=== PATIENT | female | born 1940 | race Caucasian/White ===

== ENCOUNTER 2019-07-01 18:09 | Inpatient (IN) | payer OTHER ==
[~2019-07-01] VITALS: Ht 160 cm; Wt 71.8 kg
[~2019-07-01 18:09] MED LIST: CIPR500T4 PO; MECL25TA18 PO; METR-103 PO
[2019-07-01 19:21] LABS: Basophils # (auto) 0 10 ^3/uL (0-0.2); Basophils % (auto) 0.5 % (0.0-2.0); Eosinophils # (auto) 0.2 10 ^3/uL (0-0.8); Hematocrit 38.5 % (36.0-46.0); Hemoglobin 12.5 g/dL (12.2-16.2); Lymphocytes # (auto) 1.9 10 ^3/uL (0.4-5.4); Lymphocytes % (auto) 21.1 % (10.0-50.0); Mean Corpuscular Hemoglobin 28.5 pg (28.0-32.0); Mean Corpuscular Hgb Conc. 32.3 g/dL (32.0-36.0); Mean Corpuscular Volume 88.1 fL (80.0-100.0); Monocytes # (auto) 0.8 10 ^3/uL (0-1.3); Monocytes % (auto) 8.6 % (0.0-12.0); Neutrophils # (auto) 6.1 10 ^3/uL (1.6-8.6); Neutrophils % (auto) 67.8 % (37.0-80.0); Platelet Count (auto) 134 10^3/uL (140-450); Red Blood Cells 4.37 10^6/uL (4.0-5.20); Red Cell Distribution Width 17.5 % (11.8-14.3)
[2019-07-01 19:44] LABS: Calcium 8.4 mg/dL (8.5-10.1); Chloride 107 mmol/L (98-107); Potassium 4.4 mmol/L (3.5-5.1); Sodium 138 mmol/L (136-145)
[2019-07-01 19:51] LABS: Alanine Aminotransferase 20 U/L (13-56); Albumin 3.7 g/dL (3.4-5.0); Alkaline Phosphatase 127 U/L (45-117); Anion Gap 5 (5-15); Aspartate Aminotransferase 17 U/L (15-37); BUN/Creatinine Ratio 29.4; Bilirubin, Total 0.6 mg/dL (0.2-1.0); Blood Urea Nitrogen 30 mg/dL (7-18); Carbon Dioxide 26 mmol/L (21-32); GFR African American 67 mL/min; GFR Non-African American 56 mL/min; Glucose 131 mg/dL (74-106)
[2019-07-01 19:52] LABS: Urine Bacteria NONE SEEN /hpf (None Seen); Urine Blood Negative /uL (Negative); Urine Specific Gravity 1.015 (1.001-1.035); Urine WBC 11 /hpf (0 - 5)
[2019-07-01 20:06] LABS: INR 1.07 (0.9-1.15); Partial Thromboplastin Time 25.3 sec (23.64-32.05)
[2019-07-01] MEDS ORDERED: levoFLOXacin 500MG 100 ML IV ONE (20:30)
[2019-07-01] MEDS ORDERED: DEXTROSE (50%) 50ML SYRG IV PRN (21:15)
[2019-07-01] MEDS ORDERED: TEMAZEPAM 15 MG CAP PO PRN (21:15)
[2019-07-01] MEDS ORDERED: MORPHINE SULF INJ 2 MG/ML SYRINGE 1ML IV PRN (21:15)
[2019-07-01] MEDS ORDERED: NITROGLYCERIN 0.4 MG SL TAB SL PRN (21:15)
[2019-07-01] MEDS ORDERED: SODIUM CHLORIDE 0.9% 1,000 ML IV SCH (21:15)
[2019-07-01] MEDS ORDERED: PANTOPRAZOLE 40 MG/10 ML VIAL INJ IV ONE (21:15)
[2019-07-01] MEDS ORDERED: ONDANSETRON HCL 4 MG/2 ML VIAL IV PRN (21:15)
--- NOTE | 2019-07-01 22:35 | NUR ---
Telemetry admit from ER KELIN IBRAHIM admitted to Telemetry unit after SBAR received. Patient oriented to Mark Spears, primary RN, unit, room, bed, and unit policies regarding patient care and visiting hours. Patient now on continuous telemetry monitoring, tele box # 73 and telemetry reading on arrival to unit is sinus rhythm. Patient weighed by bedscale and encouraged to call if they need something. All questions and concerns addressed, patient verbalized understanding.
[2019-07-01 23:38] VITALS: BP 123/67
[2019-07-01 23:55] VITALS: BP 123/67
[2019-07-02] MEDS: ACCU-CHEK COMFORT CURVE STRIP VI SCH ×4 (00:29→17:38)
[2019-07-02] MEDS: InsuLIN REG 1unit/0.01ml Soln (100units/ml) SC SCH ×4 (00:29→17:38)
[2019-07-02 05:00] VITALS: BP 95/43
--- NOTE | 2019-07-02 05:30 | NUR ---
Stool sample for occult blood and culture sent to laboratory.
[2019-07-02 05:56] LABS: Basophils # (auto) 0 10 ^3/uL (0-0.2); Basophils % (auto) 0.4 % (0.0-2.0); Eosinophils # (auto) 0.2 10 ^3/uL (0-0.8); Eosinophils % (auto) 2.8 % (0.0-7.0); Hematocrit 30.8 % (36.0-46.0); Hemoglobin 10.4 g/dL (12.2-16.2); Lymphocytes # (auto) 1.8 10 ^3/uL (0.4-5.4); Lymphocytes % (auto) 27.9 % (10.0-50.0); Mean Corpuscular Hemoglobin 29.8 pg (28.0-32.0); Mean Corpuscular Hgb Conc. 33.9 g/dL (32.0-36.0); Monocytes # (auto) 0.6 10 ^3/uL (0-1.3); Neutrophils % (auto) 59.9 % (37.0-80.0); Nucleated Red Blood Cells % 0.1 %; Platelet Count (auto) 108 10^3/uL (140-450); Red Cell Distribution Width 17.1 % (11.8-14.3); White Blood Cell 6.6 10^3/uL (4.4-10.8)
[2019-07-02 06:12] LABS: BUN/Creatinine Ratio 38.6; Calcium 7.7 mg/dL (8.5-10.1); Potassium 4.1 mmol/L (3.5-5.1)
[2019-07-02 08:00] VITALS: BP 108/64
[2019-07-02 09:00] VITALS: BP 108/64
[2019-07-02] MEDS ORDERED: levoFLOXacin 500MG 100 ML IV SCH (10:00)
[2019-07-02] MEDS: levoFLOXacin 250MG 50 ML IV SCH (11:43)
[2019-07-02] MEDS: PANTOPRAZOLE 40 MG/10 ML VIAL INJ IV SCH (11:43)
[2019-07-02 13:00] VITALS: BP 123/55
--- NOTE | 2019-07-02 15:00 | NUR ---
DR. ROBBINS AT BEDSIDE. ORDERS RECEIVED AND VERIFIED.
[2019-07-02 16:54] VITALS: BP 128/58
[2019-07-02] MEDS: POTASSIUM CHLORIDE 20 MEQ in D5W/LACTATED RINGERS 1,000 ML IV SCH ×2 (16:58→21:21)
--- NOTE | 2019-07-02 19:04 | NUR ---
CLOSING NOTE PATIENT IS COMFORTABLY RESTING IN BED, NO S/S OF DISTRESS NOTED/STATED. NO C/O PAIN. BED AT LOWEST LOCKED POSITION AND CALL LIGHT WITHIN REACH.BED ALARM ON. CARE ENDORSED TO ASHLEY FRIED.
--- NOTE | 2019-07-02 19:15 | NUR ---
Opening Shift Note Received report from Arlyn ARMENDARIZ. Assumed care of patient, awake and alert. No S/S of distress/SOB or pain. Instructed on POC and to call for assist PRN, will continue to monitor for changes Q1hr and PRN.
[2019-07-02 21:01] VITALS: BP 121/55
--- NOTE | 2019-07-02 22:15 | NUR ---
Patient had large black tarry stool with blood, continue care.
[2019-07-03] MEDS: ACCU-CHEK COMFORT CURVE STRIP VI SCH ×4 (00:03→18:00)
[2019-07-03] MEDS: InsuLIN REG 1unit/0.01ml Soln (100units/ml) SC SCH ×4 (00:04→18:00)
[2019-07-03 04:41] VITALS: BP 94/46
[2019-07-03 07:18] LABS: Hematocrit 29.7 % (36.0-46.0); Hemoglobin 9.7 g/dL (12.2-16.2)
[2019-07-03] MEDS: POTASSIUM CHLORIDE 20 MEQ in D5W/LACTATED RINGERS 1,000 ML IV SCH ×2 (07:27→17:33)
[2019-07-03] MEDS ORDERED: MULTTAB OR (07:53)
[2019-07-03] MEDS ORDERED: GLYB5TAB PO (07:53)
[2019-07-03] MEDS ORDERED: KRIL1CAP9 PO (07:53)
[2019-07-03] MEDS ORDERED: BENA20TA14 PO (07:53)
[2019-07-03] MEDS ORDERED: GLYB2.5T14 PO (07:53)
[2019-07-03] MEDS ORDERED: MULT1CAP25 PO (07:53)
[2019-07-03] MEDS ORDERED: [UNRECOGNIZED DRUG - CODE] PO (07:53)
[2019-07-03] MEDS ORDERED: CINN500C7 PO (07:53)
[2019-07-03 08:00] VITALS: BP 131/59
[2019-07-03 09:13] VITALS: BP 131/59
[2019-07-03] MEDS: PANTOPRAZOLE 40 MG/10 ML VIAL INJ IV SCH (09:15)
[2019-07-03] MEDS: levoFLOXacin 250MG 50 ML IV SCH (09:15)
--- NOTE | 2019-07-03 11:15 | NUR ---
Patient had small black tarry stool with blood, will continue care.
[2019-07-03 13:00] VITALS: BP 134/63
[2019-07-03 13:38] LABS: Basophils # (auto) 0 10 ^3/uL (0-0.2); Basophils % (auto) 0.4 % (0.0-2.0); Eosinophils # (auto) 0.3 10 ^3/uL (0-0.8); Eosinophils % (auto) 4.3 % (0.0-7.0); Hematocrit 29.8 % (36.0-46.0); Hemoglobin 9.8 g/dL (12.2-16.2); Lymphocytes # (auto) 1.5 10 ^3/uL (0.4-5.4); Lymphocytes % (auto) 23.1 % (10.0-50.0); Mean Corpuscular Hemoglobin 29.8 pg (28.0-32.0); Mean Corpuscular Hgb Conc. 32.9 g/dL (32.0-36.0); Mean Corpuscular Volume 90.6 fL (80.0-100.0); Monocytes # (auto) 0.5 10 ^3/uL (0-1.3); Monocytes % (auto) 7.7 % (0.0-12.0); Neutrophils # (auto) 4.1 10 ^3/uL (1.6-8.6); Neutrophils % (auto) 64.5 % (37.0-80.0); Nucleated Red Blood Cells % 0.1 %; Red Blood Cells 3.29 10^6/uL (4.0-5.20); Red Cell Distribution Width 17.4 % (11.8-14.3); White Blood Cell 6.4 10^3/uL (4.4-10.8)
--- NOTE | 2019-07-03 13:39 | NUR ---
See at bedside.
[2019-07-03 13:50] LABS: Platelet Count (auto) 93 10^3/uL (140-450)
--- NOTE | 2019-07-03 14:09 | NUR ---
Patient had a very small black tarry stool with blood, will continue care
--- NOTE | 2019-07-03 14:15 | NUR ---
left a message with answering service Antonio, message for DR. Julienne Meza from [facility], regarding patient's hemoglobin levels. Addendum: 07/03/19 at 1500 by Veronica Bella RN Dr. Julienne Meza, is suggesting prepping the patient for EGD/Colonoscopy tomorrow in the AM. Properties Supervisor notified.
[2019-07-03] MEDS ORDERED: GOLYTELY 4L KIT PO ONE (15:30)
[2019-07-03 17:01] VITALS: BP 132/62
--- NOTE | 2019-07-03 19:08 | NUR ---
Closing Note No c/o pain. No s/s of distress/sob noted/stated. Bed at lowest locked position, bed side rails up x2 and call light within reach. Care endorsed to Alessia ARMENDARIZ
[2019-07-03 21:52] VITALS: BP 144/68
[2019-07-04] VITALS (7 sets, daily range): BP systolic 113–146; BP diastolic 46–70
[2019-07-04] MEDS: ACCU-CHEK COMFORT CURVE STRIP VI SCH ×4 (00:24→17:41)
[2019-07-04] MEDS: POTASSIUM CHLORIDE 20 MEQ in D5W/LACTATED RINGERS 1,000 ML IV SCH ×2 (03:39→15:06)
[2019-07-04] MEDS: InsuLIN REG 1unit/0.01ml Soln (100units/ml) SC SCH ×4 (06:00→17:41)
--- NOTE | 2019-07-04 07:05 | NUR ---
Opening Shift Note Assumed care of patient, awake and alert. No S/S of distress/SOB or pain. Instructed on POC and to call for assist PRN, will continue to monitor for changes Q1hr and PRN. Bed is set in lowest locked position with side rails up x 2 for safety and call light is within reach.
--- NOTE | 2019-07-04 08:35 | NUR ---
Tap water enema completed per MD orders.
[2019-07-04] MEDS ORDERED: FLUMAZENIL 0.1 MG/ML INJ 10ML MDV IV ONE (08:56)
[2019-07-04] MEDS ORDERED: LIDOCAINE VISCOUS 2% 15ML UD ONE (08:56)
[2019-07-04] MEDS ORDERED: NALOXONE HCL 0.4 MG/ML VIAL ONE (08:56)
[2019-07-04] MEDS ORDERED: SODIUM CHLORIDE LOCK 10 ML ONE (08:56)
[2019-07-04] MEDS ORDERED: diphenhdrAMINE HCL 50 MG/1 ML VL ONE (08:57)
--- NOTE | 2019-07-04 09:01 | NUR ---
Patient taken down to pre-op IV flushed prior and is intact/patent. No distress noted upon departure. Care endorsed to KALA Aviles.
[2019-07-04] MEDS: fentaNYL CITRATE 100 MCG/2 ML VL ONE ×3 (09:13→09:46)
[2019-07-04] MEDS: MIDAZOLAM HCL 5 MG/ML-1ML VIAL ONE ×3 (09:13→09:46)
--- NOTE | 2019-07-04 10:50 | NUR ---
Patient returned to unit Patient is currently resting in bed with eyes closed. No distress noted. Will continue to monitor patient.
[2019-07-04] MEDS: levoFLOXacin 250MG 50 ML IV SCH (11:09)
[2019-07-04] MEDS: PANTOPRAZOLE 40 MG/10 ML VIAL INJ IV SCH (11:10)
[2019-07-05] VITALS (12 sets, daily range): BP systolic 123–161; BP diastolic 51–88
[2019-07-05] MEDS: POTASSIUM CHLORIDE 20 MEQ in D5W/LACTATED RINGERS 1,000 ML IV SCH (00:21)
[2019-07-05] MEDS: InsuLIN REG 1unit/0.01ml Soln (100units/ml) SC SCH ×5 (00:22→23:19)
[2019-07-05] MEDS: ACCU-CHEK COMFORT CURVE STRIP VI SCH ×5 (00:23→23:18)
[2019-07-05 06:48] LABS: Basophils # (auto) 0 10 ^3/uL (0-0.2); Basophils % (auto) 0.4 % (0.0-2.0); Mean Corpuscular Volume 88.8 fL (80.0-100.0); Monocytes # (auto) 0.4 10 ^3/uL (0-1.3); Neutrophils # (auto) 2.8 10 ^3/uL (1.6-8.6)
[2019-07-05 06:51] LABS: Eosinophils # (auto) 0.3 10 ^3/uL (0-0.8); Eosinophils % (auto) 5.3 % (0.0-7.0); Hematocrit 18.5 % (36.0-46.0); Lymphocytes # (auto) 1.5 10 ^3/uL (0.4-5.4); Lymphocytes % (auto) 29.5 % (10.0-50.0); Mean Corpuscular Hemoglobin 29.7 pg (28.0-32.0); Mean Corpuscular Hgb Conc. 33.5 g/dL (32.0-36.0); Monocytes % (auto) 8.9 % (0.0-12.0); Neutrophils % (auto) 55.9 % (37.0-80.0); Nucleated Red Blood Cells % 0.1 %; Platelet Count (auto) 63 10^3/uL (140-450); Red Blood Cells 2.08 10^6/uL (4.0-5.20); Red Cell Distribution Width 16.6 % (11.8-14.3)
--- NOTE | 2019-07-05 06:56 | NUR ---
Patient had no episodes of bloody bowel movements. Denies any pain or discomfort.
[2019-07-05 06:59] LABS: Potassium 3.8 mmol/L (3.5-5.1)
[2019-07-05 07:10] LABS: BUN/Creatinine Ratio 7.8; Calcium 7.5 mg/dL (8.5-10.1); Hemoglobin 6.2 g/dL (12.2-16.2)
--- NOTE | 2019-07-05 07:14 | NUR ---
Ken Stafford in regards to critical lab value Hbg 6.2, Hct 18.5. Awaiting call back.
--- NOTE | 2019-07-05 07:48 | NUR ---
Spoke to MD Rivera [facility] aware of critical lab value, received orders for a STAT re-draw of H & H. Per MD if Hgb re-draw comes back less than 7.0, transfuse 2 units pRBC. Orders read back for verification, will proceed to carry out.
[2019-07-05 08:35] LABS: Hemoglobin 7.3 g/dL (12.2-16.2)
--- NOTE | 2019-07-05 08:39 | NUR ---
Hgb re-draw results are 7.3 Will continue to monitor patient.
--- NOTE | 2019-07-05 09:20 | NUR ---
Patient off unit Taken down to radiology, no distress noted upon departure.
--- NOTE | 2019-07-05 11:25 | NUR ---
Patient returned to floor from radiology
[2019-07-05] MEDS: PANTOPRAZOLE 40 MG/10 ML VIAL INJ IV SCH (11:45)
--- NOTE | 2019-07-05 12:23 | NUR ---
Nutrition Assessment Notes please see attached link for complete assessment [employer] needs BW 71 [id number] kcals (23-25 kcal/kgBW), Est Protein needs: 71-78 gms/day (1.0-1.1 gm/kgBW). Will continue to monitor and reassess prn. Addendum: 07/05/19 at [address] Amended: Links added.
[2019-07-05] MEDS ORDERED: FERR-7 PO (15:05)
--- NOTE | 2019-07-05 15:15 | NUR ---
Patient off unit Taken down to radiology for second part of acute gastro blood loss test. No distress noted upon departure.
--- NOTE | 2019-07-05 16:25 | NUR ---
Spoke to MD Stafford in regards to blood transfusion Per MD, patient is to receive 1 unit of pRBC before discharge. After transfusion patient is clear to go home. Orders read back for verification. Will proceed to carry out.
--- NOTE | 2019-07-05 17:30 | NUR ---
Spoke to MD Meza Per MD, patient is to have transfusion and a re-draw of H & H prior to discharge. Will proceed to notify MD Stafford.
--- NOTE | 2019-07-05 17:50 | NUR ---
Spoke to MD Stafford Per MD, patient is to have a repeat H&H one hour following transfusion, and a repeat H&H in the am labs. Discharge will be postponed till tomorrow am. If Hgb level is less than 8.0 notify MD before proceeding with the discharge in the am.
--- NOTE | 2019-07-05 23:00 | NUR ---
Blood transfusion completed: 1 unit PRBC, Post transfusion H&H 8.7/25.6.
[2019-07-05 23:39] LABS: Hematocrit 25.6 % (36.0-46.0); Hemoglobin 8.7 g/dL (12.2-16.2)
[2019-07-06 05:00] VITALS: BP 110/54
[2019-07-06] MEDS: InsuLIN REG 1unit/0.01ml Soln (100units/ml) SC SCH ×2 (05:48→11:27)
[2019-07-06] MEDS: ACCU-CHEK COMFORT CURVE STRIP VI SCH ×2 (05:49→11:26)
[2019-07-06 06:41] LABS: Basophils # (auto) 0 10 ^3/uL (0-0.2); Basophils % (auto) 0.3 % (0.0-2.0); Eosinophils # (auto) 0.3 10 ^3/uL (0-0.8); Eosinophils % (auto) 4.3 % (0.0-7.0); Hematocrit 23.8 % (36.0-46.0); Hemoglobin 8.2 g/dL (12.2-16.2); Lymphocytes # (auto) 1.7 10 ^3/uL (0.4-5.4); Lymphocytes % (auto) 23.5 % (10.0-50.0); Mean Corpuscular Hemoglobin 29.9 pg (28.0-32.0); Mean Corpuscular Hgb Conc. 34.4 g/dL (32.0-36.0); Monocytes # (auto) 0.6 10 ^3/uL (0-1.3); Monocytes % (auto) 9.1 % (0.0-12.0); Neutrophils # (auto) 4.5 10 ^3/uL (1.6-8.6); Neutrophils % (auto) 62.8 % (37.0-80.0); Platelet Count (auto) 81 10^3/uL (140-450); Red Blood Cells 2.74 10^6/uL (4.0-5.20); Red Cell Distribution Width 16.1 % (11.8-14.3); White Blood Cell 7.1 10^3/uL (4.4-10.8)
--- NOTE | 2019-07-06 07:24 | NUR ---
Patient had 2 episodes of bloody stools with blood clots this morning. Endorsed to oncoming nurse.
[2019-07-06 08:00] VITALS: BP 140/79
[2019-07-06 08:46] VITALS: BP 140/79
[2019-07-06] MEDS: PANTOPRAZOLE 40 MG/10 ML VIAL INJ IV SCH (09:33)
--- NOTE | 2019-07-06 11:12 | NUR ---
PATIENT HAD SEMI FORMED STOOL WITH EVIDENCE OF BLOOD AND CLOTS
--- NOTE | 2019-07-06 11:31 | NUR ---
DR MARYCHUY DALAL NOTES READ THAT PATIENT IS CLEAR FOR DISCHARGE IF NO CLINICAL INDICATIONS OF BLEEDING ARE PRESENT. PATIENT HAS HAD SEVERAL BLOODY STOOLS LAST NIGHT THROUGH THIS MORNING.
[2019-07-06 12:50] LABS: Hematocrit 26.5 % (36.0-46.0); Hemoglobin 8.9 g/dL (12.2-16.2)
[2019-07-06 13:00] VITALS: BP 143/82
[2019-07-06 14:50] VITALS: BP 143/82
--- NOTE | 2019-07-06 16:00 | NUR ---
PATIENT TELEMETRY BOX REMOVED AND RETURNED TO TELEMETRY DEPARTMENT. ALL IV ACCESS DISCONTINUED.
--- NOTE | 2019-07-06 16:15 | NUR ---
PATIENT DISCHARGED HOME WITH FAMILY. ALL DISCHARGE PAPERWORK SIGNED. ALL DISCHARGE INSTRUCTIONS GIVEN.
[2019-07-06 17:00] VITALS: BP 173/97
== END 2019-07-06 16:15 | disposition home or self-care (01) | DRG 378 ==
LOC: ER 18:10 → TELE 18:11 → TELE-WESTW 22:35
PROVIDERS: ADMIT Nurse Practitioner; ATTEND Hospitalist
PROC: 0DJ08ZZ Inspection of Upper Intestinal Tract, Via Natural or Artificial Opening Endoscopic (ICD-10-PCS; principal; 2019-07-04 09:00)
PROC: 0DJD8ZZ Inspection of Lower Intestinal Tract, Via Natural or Artificial Opening Endoscopic (ICD-10-PCS; 2019-07-04 09:00)
PROC: 30233N1 Transfusion of Nonautologous Red Blood Cells into Peripheral Vein, Percutaneous Approach (ICD-10-PCS; 2019-07-05)
DX: K57.31 Diverticulosis of large intestine without perforation or abscess with bleeding (principal); Q27.30 Arteriovenous malformation, site unspecified; N39.0 Urinary tract infection, site not specified; D62 Acute posthemorrhagic anemia; I10 Essential (primary) hypertension; E11.9 Type 2 diabetes mellitus without complications; K44.9 Diaphragmatic hernia without obstruction or gangrene; Z85.3 Personal history of malignant neoplasm of breast; Z90.710 Acquired absence of both cervix and uterus; Z88.5 Allergy status to narcotic agent; Z88.0 Allergy status to penicillin; Z88.7 Allergy status to serum and vaccine; Z91.012 Allergy to eggs; Z79.899 Other long term (current) drug therapy; Z90.49 Acquired absence of other specified parts of digestive tract; Z82.49 Family history of ischemic heart disease and other diseases of the circulatory system; Z83.3 Family history of diabetes mellitus
CPT/HCPCS: 36415; 74176; 78278; 80048; 80053; 81001; 82270; 82962; 84484; 85014; 85018; 85025; 85610; 85730; 86850; 86900; 86901; 86920; 87045; 87427; 93005; 96365; A9560; C9113; G0378; J1815; J1956; J2250